=== PATIENT | male | born 2000 | race Two or more races ===

== ENCOUNTER 2024-01-17 17:17 | Emergency (ER) | payer OTHER ==
[~2024-01-17] VITALS: Ht 172.7 cm; Wt 64.7 kg
[2024-01-17 18:24] VITALS: BP 124/68; PULSE 77; RESP 16; TEMP 98.4; O2SAT 99
== END 2024-01-17 18:53 | disposition home or self-care (01) ==
LOC: ER 17:17
DX: S71.111A Laceration without foreign body, right thigh, initial encounter (principal); J45.909 Unspecified asthma, uncomplicated; F12.10 Cannabis abuse, uncomplicated; W26.8XXA Contact with other sharp object(s), not elsewhere classified, initial encounter; Y93.89 Activity, other specified; Y92.89 Other specified places as the place of occurrence of the external cause; Y99.8 Other external cause status
CPT/HCPCS: 12001